=== PATIENT | female | born 1930 | race Caucasian/White ===

== ENCOUNTER → 2017-05-19 | Outpatient (CLI) | payer OTHER ==
[~2017-05-19] MED LIST: ALBU18002 INH; ASPI325T39 PO; LEVO75TA PO; METH-467 PO; MULT-506 PO; PRT/20 PO; SIMV20TA2 PO
[2017-05-19 13:19] LABS: BASO % 0.4 %; BASO ABS # 0.02 K/uL (0-0.2); COMPLETE YES; EOS % 1.9 %; HEMATOCRIT 41.1 % (37-47); IG% 0.2 %; LYMPH % 29.6 %; LYMPH ABS # 1.58 K/uL (1.2-3.4); MEAN CELL VOLUME 94.9 fL (80-100); MEAN CORPUSCULAR HEMOGLOBIN 31.2 pg (25-34); MEAN CORPUSCULAR HGB CONC 32.8 g/dl (32-36); MONO % 12.2 %; NEUT % 55.7 %; PLATELET COUNT 285 K/uL (130-400); RED BLOOD COUNT 4.33 M/uL (4.2-5.4); WHITE BLOOD COUNT 5.33 K/uL (4.8-10.8)
[2017-05-19 13:38] LABS: ALT/SGPT 17 U/L (12-78); AST/SGOT 10 U/L (15-37); BLOOD UREA NITROGEN 21 mg/dl (7-18); BUN/CREATININE RATIO 26.5 (10-20); CALCIUM 8.5 mg/dl (8.5-10.1); CARBON DIOXIDE 27 mmol/L (21-32); CHLORIDE 104 mmol/L (98-107); CHOLESTEROL 196 mg/dl (0-200); CREATININE 0.78 mg/dl (0.60-1.20); GLUCOSE 73 mg/dl (70-99); POTASSIUM 3.8 mmol/L (3.5-5.1); SODIUM 136 mmol/L (136-145); TRIGLYCERIDES 84 mg/dl (0-150); VERY LOW DENSITY LIPOPROT CALC 17 mg/dl
[2017-05-19 13:46] LABS: ALB/GLOB RATIO 1.1 (0.9-2); ALKALINE PHOSPHATASE 57 U/L (45-117); CHOLESTEROL/HDL RATIO 2.6; HDL CHOLESTEROL 76 mg/dl; LDL CHOLESTEROL CALCULATED 103 mg/dl
== END | disposition home or self-care (01) ==
LOC: C.LABMFLN 07:59
PROVIDERS: ATTEND Family Medicine
DX: J45.909 Unspecified asthma, uncomplicated (principal); E78.5 Hyperlipidemia, unspecified; E03.9 Hypothyroidism, unspecified; E55.9 Vitamin D deficiency, unspecified

== ENCOUNTER → 2017-07-21 | Outpatient (CLI) | payer OTHER ==
[~2017-07-21] MED LIST changes: +MethylPREDNISolone HOME PACK 16 MG TAB PO SCH
--- NOTE | 2017-07-21 13:49 | DIAGNOSTIC IMAGING REPORT ---
CT ANGIOGRAM OF THE BRAIN COMBO; CT ANGIOGRAM OF THE NECK CLINICAL HISTORY: Vertebral artery stenosis. COMPARISON STUDY: No priors. TECHNIQUE: Unenhanced axial CT scan of the brain is performed. Subsequently, following the IV administration of 120 of Optiray 320, CT angiogram of the head and neck was performed from the aortic arch to the vertex. Images are reviewed in the axial, sagittal, and coronal planes. 3-D MIPS images are created and assessed. IV contrast was administered without complication. All measurements were calculated based on NASCET criteria. A dose lowering technique was utilized adhering to the principles of ALARA. CT DOSE: 1110.73 mGy.cm FINDINGS: Brain parenchyma: There are age-related involutional changes noting mild subcortical and periventricular microangiopathic disease. There is no hemorrhage, mass effect, or evidence of acute territorial ischemia by CT criteria. There is no evidence of enhancing mass lesion on the angiogram phase images. The ventricles, sulci, and cisterns are prominent secondary to involutional change. Shannon-white matter differentiation is preserved. No extra-axial fluid collection is seen. Thoracic aorta: There is mild atherosclerotic calcification of the thoracic aorta. Visualized portions of the thoracic aorta are normal in caliber. The arch demonstrates standard 3-vessel anatomy. Right carotid arterial system: The right common carotid artery is widely patent, as are the right internal and external carotid arteries. There is tortuosity of the distal internal carotid artery. Left carotid arterial system: The left common carotid artery is widely patent, as are the left internal and external carotid arteries. Vertebral arteries: Widely patent and codominant. Subclavian arteries: Widely patent bilaterally. Intracranial vasculature: There is mild atherosclerotic calcification of the cavernous carotid arteries. There is a right posterior communicating artery. The internal carotid arteries are patent at the skull base, as are the anterior and middle cerebral arteries bilaterally. The vertebrobasilar system and posterior cerebral arteries are widely patent. The vertebral arteries are codominant. There is no aneurysm, high-grade stenosis, or focal vessel cut off seen throughout the intracranial circulation. Jugular veins: Widely patent bilaterally. Dural sinuses: Patent. Lung apices: Partially visualized upper lobe lung parenchyma appears clear. Soft tissues: The visualized pharyngeal soft tissues are normal in appearance noting angiographic phase technique. The oropharyngeal airway appears widely patent. The salivary glands are normal in appearance. The thyroid gland is atrophic. No cervical lymphadenopathy is seen. Skeletal structures: The skeletal structures are osteopenic. The calvarium appears maintained. The cervical spine is intact noting multilevel spondylosis. Sinuses and mastoids: The paranasal sinuses are clear. The mastoid air cells are well pneumatized. Orbits: The bony orbits appear intact. There has been banding of the ocular globes. Bilateral lens implants are noted. IMPRESSION: 1. There is no hemorrhage, mass effect, or evidence of acute territorial ischemia by CT criteria. 2. Unremarkable CT angiogram of the brain. 3. Unremarkable CT angiogram of the neck. Electronically signed by: Alfonso Dean M.D. 07/21/2017 1:48 PM Dictated Date/Time: 07/21/2017 1:36 PM
== END | disposition home or self-care (01) ==
LOC: C.CTS 12:16
PROVIDERS: ATTEND Family Medicine
DX: I65.09 Occlusion and stenosis of unspecified vertebral artery (principal)

== ENCOUNTER → 2017-07-31 | Outpatient (CLI) | payer OTHER ==
[~2017-07-31] MED LIST changes: -MethylPREDNISolone HOME PACK 16 MG TAB PO SCH
== END | disposition home or self-care (01) ==
LOC: C.LABMFLN 14:02
PROVIDERS: ATTEND Family Medicine
DX: N39.0 Urinary tract infection, site not specified (principal)

== ENCOUNTER → 2017-08-11 | Outpatient (CLI) | payer OTHER | END | disposition home or self-care (01) | LOC: C.LABMFLN 11:06 | PROVIDERS: ATTEND Family Medicine | DX: N39.0 Urinary tract infection, site not specified (principal) ==

== ENCOUNTER → 2017-08-15 | Outpatient (CLI) | payer OTHER | END | disposition home or self-care (01) | LOC: C.LABMFLN 15:44 | PROVIDERS: ATTEND Family Medicine | DX: N39.0 Urinary tract infection, site not specified (principal) ==

== ENCOUNTER → 2017-10-12 | Outpatient (CLI) | payer OTHER | END | disposition home or self-care (01) | LOC: C.LABSPEC 10:16 | PROVIDERS: ATTEND Urology | DX: N39.0 Urinary tract infection, site not specified (principal) ==

== ENCOUNTER 2017-12-04 08:20 | Inpatient (IN) | payer OTHER ==
--- NOTE | 2017-11-16 15:09 | HISTORY & PHYSICAL EXAMINATION ---
DATE OF ADMISSION: 12/04/2017 CHIEF COMPLAINT: Left knee pain. HISTORY OF PRESENT ILLNESS: Ms. Lira is an 87-year-old female with a 5-6 year history of left knee pain. The patient rates her pain as 07/10. She has pain with her daily activities. She has limited standing and walking tolerance. Pain is worse with weightbearing. The patient has had injection. She ambulates with a walker. She has failed conservative treatment and is scheduled for left knee replacement. PAST MEDICAL HISTORY: Mitral valve regurgitation, asthma controlled, thyroid disease. She denies heart disease, diabetes or DVT. PAST SURGICAL HISTORY: Tonsillectomy, hysterectomy, ORIF of wrist and ORIF of elbow. SOCIAL HISTORY: The patient denies alcohol or tobacco use. She lives in a [address] home. She is and retired. FAMILY HISTORY: Negative for DVT. MEDICATIONS: Synthroid 75 mcg daily, simvastatin 10 mg daily, aspirin 325 mg p.r.n., and Protonix 20 mg daily. ALLERGIES: CELEBREX, SULFA, CEPHALOSPORINS, LEVOFLOXACIN, CIPROFLOXACIN, AND IODINE. REVIEW OF SYSTEMS: See HPI. Ten other systems reviewed, all negative. PHYSICAL EXAMINATION: VITAL SIGNS: Height 5 feet 3 inches, weight 140 pounds, BMI 25. GENERAL: This is a well-developed, well-nourished female who is alert and oriented x3. Mood and affect are appropriate. HEENT: Normocephalic, atraumatic. Mucous membranes are moist and intact. NECK: Supple without lymphadenopathy. HEART: Regular rate and rhythm without murmurs, rubs or gallops. LUNGS: Clear to auscultation without wheezes or rhonchi. ABDOMEN: Soft and nontender. Bowel sounds are equal and active. EXTREMITIES: No ecchymosis, redness or warmth. She has a valgus deformity. Range of motion is from 5-110 degrees. She has no laxity. She is neurovascularly intact with +5/5 strength. X-RAY EXAMINATION: AP and lateral views show joint space narrowing and osteophyte formation. IMPRESSION: Degenerative joint disease, left knee. PLAN: The patient will be admitted for a left total knee arthroplasty. We will plan on aspirin for DVT prophylaxis. The patient is planning a short stay at [facility] upon discharge.
[2017-11-16 15:12] VITALS: Ht 160 cm; Wt 63.7 kg
--- NOTE | 2017-11-16 15:53 | PAT Medication Instructions ---
Service Date Nov 16, 2017. Current Home Medication List Albuterol Sulfate (Proair Respiclick), 2 PUFFS INH PRN Levothyroxine Sodium (Synthroid), 75 MCG PO QAM Methenamine Hippurate (Methenamine Hippurate), 1 TAB PO BID Multivitamin (Multivitamin), 1 TAB PO HS Pantoprazole (Protonix), 20 MG PO QAM Simvastatin (Zocor), 20 MG PO QPM Medication Instructions For Your Scheduled Surgery - Take the following medications the morning of surgery with a sip of water: Albuterol Sulfate (Proair Respiclick), 2 PUFFS INH PRN (if needed, and bring it with you to the hospital) Levothyroxine Sodium (Synthroid), 75 MCG PO QAM Methenamine Hippurate (Methenamine Hippurate), 1 TAB PO BID Pantoprazole (Protonix), 20 MG PO QAM - Take the following medications as scheduled the night before surgery: Albuterol Sulfate (Proair Respiclick), 2 PUFFS INH PRN (if needed) Methenamine Hippurate (Methenamine Hippurate), 1 TAB PO BID Multivitamin (Multivitamin), 1 TAB PO HS Simvastatin (Zocor), 20 MG PO QPM If you have any questions please call us at [phone] or [phone] or [phone]
[2017-11-16 16:32] LABS: BASO % 0.6 %; BASO ABS # 0.03 K/uL (0-0.2); EOS % 3.1 %; EOS ABS # 0.15 K/uL (0-0.5); HEMATOCRIT 40.8 % (37-47); HEMOGLOBIN 13.6 g/dL (12.0-16.0); LYMPH % 22.4 %; LYMPH ABS # 1.09 K/uL (1.2-3.4); MEAN CELL VOLUME 92.9 fL (80-100); MEAN CORPUSCULAR HGB CONC 33.3 g/dl (32-36); MEAN PLATELET VOLUME 10.6 fL (7.4-10.4); MONO % 8.8 %; MONO ABS # 0.43 K/uL (0.11-0.59); NEUT % 65.1 %; NEUT ABS # 3.17 K/uL (1.4-6.5); PLATELET COUNT 254 K/uL (130-400); RED CELL DISTRIBUTION WIDTH CV 13.3 % (11.5-14.5); RED CELL DISTRIBUTION WIDTH SD 45.2 fL (36.4-46.3); WHITE BLOOD COUNT 4.87 K/uL (4.8-10.8)
[2017-11-16 16:38] LABS: HEMOGLOBIN A1C 5.6 % (4.5-5.6)
[2017-11-16 16:40] LABS: ALBUMIN 3.7 gm/dl (3.4-5.0); CALCIUM 9.5 mg/dl (8.5-10.1); CREATININE 0.67 mg/dl (0.60-1.20); POTASSIUM 3.8 mmol/L (3.5-5.1)
--- NOTE | 2017-11-16 16:47 | DIAGNOSTIC IMAGING REPORT ---
CHEST 2 VIEWS ROUTINE CLINICAL HISTORY: pat preoperative evaluation COMPARISON STUDY: No previous studies for comparison. FINDINGS: Mild cardiomegaly. External hernia. Diaphragms smooth. Lungs are clear. IMPRESSION: Mild cardiomegaly. Hilar hernia. No acute process. The above report was generated using voice recognition software. It may contain grammatical, syntax or spelling errors. Electronically signed by: Rashel Pitt M.D. 11/16/2017 4:46 PM Dictated Date/Time: 11/16/2017 4:45 PM
[2017-11-16 16:51] LABS: PTT PATIENT 34.5 SECONDS (21.0-31.0)
[2017-12-04] VITALS (8 sets, daily range): BP systolic 102–132; BP diastolic 59–75; PULSE 65–76; TEMP 36.3–36.6; O2SAT 95–99
[~2017-12-04] VITALS: Ht 160 cm; Wt 63.7 kg
[~2017-12-04 08:20] MED LIST changes: +ACETAMINOPHEN 500 MG TAB PO SCH; -ASPI325T39 PO; +BUPIVACAINE 0.5 % 5 MG/1 ML PF 10ML VIAL ONE; +CEFAZOLIN 1000MG IV PUSH 7.5 ML IV SCH; +CLINDAMYCIN 600 MG/54 ML D5W IV SCH; +DEXAMETHASONE 4 MG TAB PO SCH; +FAMOTIDINE 20 MG TAB PO SCH; +FENTANYL CITRATE INJ 50 MCG/1 ML 2 ML VIAL ONE; +GABAPENTIN 300 MG CAP PO SCH; +LACTATED RINGER'S 1000ML 1,000 ML IV SCH; +LACTATED RINGER'S 1000ML 500 ML IV SCH; +LIDOCAINE HCL 2% 2 ML VIAL (20MG/ML) ONE; +METH-1305 PO; -METH-467 PO; +METOCLOPRAMIDE HCL 10 MG TAB PO SCH; +MIDAZOLAM HCL 1 MG/ML 2ML VIAL ONE; +PROPOFOL IV EMULSION 10 MG/ML 20 ML VIAL IV ONE; +ROPIVACAINE 5MG/ML 30 ML 150 MG, BUPIVACAINE 0.5% MPF INJ 30 ML, EpINEphrine HCL INJ 0.... INFIL SCH
[2017-12-04] MEDS ORDERED: CLARITIN D (08:43)
[2017-12-04] MEDS ORDERED: ATROPINE SULFATE 0.1 MG/ML 5ML SYR IV PRN (08:45)
[2017-12-04] MEDS ORDERED: FENTANYL CITRATE INJ 50 MCG/1 ML 2 ML VIAL IV PRN (08:45)
[2017-12-04] MEDS ORDERED: EpHEDrine SULFATE INJ 50 MG/ML AMP IV PRN (08:45)
[2017-12-04] MEDS ORDERED: ONDANSETRON INJ 2 MG/ML 2 ML VIAL IV PRN ×2 (08:45→11:30)
[2017-12-04] MEDS ORDERED: BACITRACIN 50000 UNIT VIAL ONE (08:56)
[2017-12-04] MEDS ORDERED: ORTHO JOINT ANESTHETIC ONE (08:56)
[2017-12-04] MEDS ORDERED: POVIDONE-IODINE OP SOLN 30 ML BTL ONE (09:12)
--- NOTE | 2017-12-04 09:12 | History & Physical Bridge Note ---
H&P Re-Evaluation Bridge Note: I have examined the patient, reviewed the History & Physical and in the interval since the performance of the History & Physical I have noted the following changes of clinical significance: No changes noted
[2017-12-04] MEDS ORDERED: CLINDAMYCIN 600 MG/54 ML D5W IV ONE (09:23)
[2017-12-04] MEDS: TRANEXAMIC ACID INJ 1,000 MG x 2 Bags IV SCH ×4 (09:29→13:31)
--- NOTE | 2017-12-04 10:41 | [facility] Post Operative Brief Note ---
Immediate Operative Summary Operative Date Dec 04, 2017. Pre-Operative Diagnosis Degenerative joint disease left knee Post-Operative Diagnosis Same as preoperative diagnosis Procedure(s) Performed Left total knee, Cemented, Amber Surgeon Dr. Jaramillo Registered Nurse Supervisor Surgeon(s) Mick Guzman PA-C Estimated Blood Loss 10ml Findings Consistent with Post-Op Diagnosis Specimens A. Left knee bone and tissue Anesthesia Type MAC Spinal Regional Complication(s) none Disposition Accompanied Pt To Recover: no Disposition: Recovery Room / PACU
--- NOTE | 2017-12-04 11:22 | OPERATIVE REPORT ---
DATE OF OPERATION: 12/04/2017 PREOPERATIVE DIAGNOSIS: Osteoarthritis, left knee. POSTOPERATIVE DIAGNOSIS: Osteoarthritis, left knee. PROCEDURE: Left total knee arthroplasty. SURGEON: Dr. Jaramillo. DOUBLING MACHINE OPERATOR: ROSELINE Wright ANESTHESIA: Spinal. COMPLICATIONS: None. IMPLANTS USED: Femoral size 3, tibial size 3, tibial poly 13, and patella size 36. OPERATION AND FINDINGS: Following induction of spinal anesthesia, the patient's left leg was prepped and draped in the usual sterile manner. Limb was exsanguinated with an Esmarch bandage and tourniquet was inflated to 350 mmHg. A longitudinal incision was made anteriorly. Subcutaneous tissue was sharply dissected. Electrocautery was used for hemostasis. Prepatellar bursa was incised and median parapatellar incision was performed. Patella was everted and the knee was flexed. Fat pad was removed to aid in visualization and the anterior and posterior cruciate ligaments were removed. The medial face of the tibia was cleared of soft tissue first with a Bovie and a Boyd elevator. This tissue was retracted posteriorly using a blunt Hohmann. A Aguilar retractor was used to expose the synovium above on the anterior aspect of the femur and this was removed down to bone. The PSI guide was placed on the distal femur and two pins were placed anteriorly and kept in position and two additional pins were placed distally and removed. The distal femoral cutting block was placed in position and the distal femoral cut was used in the +0 setting. Next, the cutting block was removed and the femoral 3 block was placed in the distal end of the femur. Care was taken to ensure appropriate external rotation and feeler gauge was used to ensure no notching would occur. The femoral block was centered on the distal femur and in the medial and lateral direction and was fixed using two bone screws. The gold pins were then removed. The oscillating saw was used to create the bone cuts and the distal femoral cutting block was removed and the reciprocating saw was used to further trim the femoral cuts as well as a deep in the area for the trochlear groove. Next, posterior condyle remnants were removed. Following this, a meniscal clamp and knife were utilized to remove the anterior portion of both medial and lateral meniscus. The proximal tibia PSI guide was placed into position and the proximal tibial cutting guide was screwed into position. The extra medullary alignment guide was utilized to ensure appropriate alignment. The proximal tibia was cut and the proximal tibial cutting block was removed and this bone fragment was removed. The appropriate guide was used to perform the notch cut on the distal femur and a lamina tray delivery aide and a cochlear knife were utilized to finish both medial and lateral meniscectomies to remove any remnants of the posterior or anterior cruciate ligaments. Following this, the distal femoral component was impacted into position and blunt Gage was used to sublux the tibia anteriorly. The proximal tibia was sized and a 3 tibial tray was chosen as the size to be used. This was put into position and appropriate external rotation and a double check with extramedullary alignment guide was performed. The canal for the tibial stem was prepared first with a 17 mm drill and then the punch and a mallet and the trial tibial poly was placed. A 13 was chosen the size to be used. It was brought to extension and the patella was prepared with the patellar reamer. A 36 component was chosen the size to be used. The trial component was placed and knee was taken through a full range of motion and there was found to be no lateral subluxation of the tibia. No lateral release was required. The trials were all removed. The final components were obtained and assembled. Cement was mixed. The knee was thoroughly irrigated and the ortho mix was injected about the knee joint. The final components were cemented into position. After thoroughly suctioning and drying the bone ends, all excess cement was removed. The knee was held in extension while the cement hardened. The wound was irrigated and closed over a Hemovac drain. #1 Vicryl was used to close the extensor mechanism. Subcutaneous tissues closed using 0 Dexon. Skin was closed with cami. Sterile dressing of Adaptic, 4 x 4's, sterile Webril, and Fer was applied. The patient tolerated the procedure well. Due to the complex nature of the procedure, the entire surgery was performed with the operational assistance of ROSELINE Wright. The customer service assistant, under direct supervision, was involved in the actual performance of all aspects of the surgical procedure including hemostasis, tissue retraction and incision, instrument management, patient positioning, and wound closure. DISPOSITION: Recovery room, stable. I attest to the content of the Intraoperative Record and any orders documented therein. Any exception s are noted below.
[2017-12-04] MEDS ORDERED: MoRPHine SULFATE 2 MG/ML CARP IV PRN (11:30)
[2017-12-04] MEDS ORDERED: TRAMADOL HCL 50 MG TAB PO PRN (11:30)
[2017-12-04] MEDS ORDERED: MAGNESIUM HYDROXIDE SUSP 30 ML UDC PO PRN (11:30)
[2017-12-04] MEDS ORDERED: BISACODYL 10 MG SUPP PR PRN (11:30)
[2017-12-04] MEDS ORDERED: ALUMINUM/MAGNESIUM/SIMETH (MAALOX MAX) 30 ML UDC PO PRN (11:30)
--- NOTE | 2017-12-04 11:47 | DIAGNOSTIC IMAGING REPORT ---
L KNEE 1 OR 2 VIEWS ROUTINE HISTORY: 87 years-old Female AP/LATERAL IN PACU LEFT KNEE status post left knee total joint arthroplasty. Degenerative joint disease. COMPARISON: None available TECHNIQUE: 2 views of the left knee FINDINGS: Postoperative changes from recent left knee total joint arthroplasty and patellar resurfacing. Anterior midline skin cami are noted in addition to expected postsurgical soft tissue swelling and deep tissue air. Surgical drain is in place. The bones appear mildly demineralized. Alignment is satisfactory. No retained foreign body identified. IMPRESSION: Satisfactory alignment of the left knee status post placement of a left knee total joint arthroplasty with patellar resurfacing. The above report was generated using voice recognition software. It may contain grammatical, syntax or spelling errors. Electronically signed by: Brent Cai M.D. 12/04/2017 11:46 AM Dictated Date/Time: 12/04/2017 11:45 AM
[2017-12-04] MEDS ORDERED: ALBUTEROL HFA 8 GM INHALER INH PRN (12:15)
--- NOTE | 2017-12-04 12:21 | Anesthesiology Progress Note ---
Anesthesia Post Op Note Date & Time Dec 04, 2017 at 12:21 Vital Signs Pain Intensity: 0 Vital Signs Past 12 Hours Date Time Temp Pulse Resp B/P (MAP) Pulse Ox O2 Delivery O2 Flow Rate FiO2 12/04/17 11:58 36.4 122/67 12/04/17 11:56 63 14 100 12/04/17 11:56 63 14 12/04/17 11:53 128/61 12/04/17 11:51 63 12 99 12/04/17 11:51 63 12 12/04/17 11:48 126/57 12/04/17 11:46 62 18 12/04/17 11:46 62 18 99 12/04/17 11:45 Nasal Cannula 3 12/04/17 11:43 125/58 12/04/17 11:41 63 24 99 12/04/17 11:41 63 24 12/04/17 11:38 119/55 12/04/17 11:36 65 12 12/04/17 11:36 64 12 99 12/04/17 11:33 119/51 12/04/17 11:31 64 14 99 12/04/17 11:31 64 14 12/04/17 11:28 121/54 12/04/17 11:26 69 16 12/04/17 11:26 73 16 100 12/04/17 11:23 119/52 12/04/17 11:21 81 15 100 12/04/17 11:21 69 15 12/04/17 11:19 118/52 12/04/17 11:16 36.5 76 16 118/52 100 Oxymask 7 12/04/17 08:43 36.4 76 18 130/66 97 Room Air Notes Mental Status: alert / awake / arousable, participated in evaluation Pt Amnestic to Procedure: Yes Nausea / Vomiting: adequately controlled Pain: adequately controlled Airway Patency, RR, SpO2: stable & adequate BP & HR: stable & adequate Hydration State: stable & adequate Neuraxial Anesthesia: was administered, sensory block is resolving Anesthetic Complications: no major complications apparent
[2017-12-04] MEDS: D5W AND 1/2NSS + 20MEQ KCL 1,000 ML IV SCH (13:30)
[2017-12-04] MEDS: ACETAMINOPHEN 500 MG TAB PO SCH (16:51)
[2017-12-04] MEDS: CLINDAMYCIN IV 600 MG in DEXTROSE 5% 50ML 50 ML IV SCH (17:49)
[2017-12-04] MEDS: FERROUS GLUCONATE 324 MG TAB PO SCH (17:49)
[2017-12-04] MEDS: SENNA 8.6 MG TAB PO SCH (21:00)
[2017-12-04] MEDS: DOCUSATE SODIUM 100 MG CAP PO SCH (21:01)
[2017-12-04] MEDS: METHENAMINE HIPPURATE 1 GM TAB PO SCH (21:01)
[2017-12-04] MEDS: ASPIRIN 81 MG ECTAB PO SCH (21:02)
[2017-12-04] MEDS: SIMVASTATIN 20 MG TAB PO SCH (22:25)
[2017-12-05] MEDS: ACETAMINOPHEN 500 MG TAB PO SCH ×3 (01:30→16:44)
[2017-12-05] MEDS: D5W AND 1/2NSS + 20MEQ KCL 1,000 ML IV SCH (01:31)
[2017-12-05] MEDS: CLINDAMYCIN IV 600 MG in DEXTROSE 5% 50ML 50 ML IV SCH (01:31)
[2017-12-05 03:15] VITALS: BP 152/76; PULSE 79; TEMP 36.6; O2SAT 97
[2017-12-05] MEDS: LEVOTHYROXINE 75 MCG TAB PO SCH (05:27)
[2017-12-05 06:40] LABS: HEMATOCRIT 35.9 % (37-47); HEMOGLOBIN 11.7 g/dL (12.0-16.0); MEAN CELL VOLUME 91.8 fL (80-100); MEAN CORPUSCULAR HEMOGLOBIN 29.9 pg (25-34); MEAN CORPUSCULAR HGB CONC 32.6 g/dl (32-36); MEAN PLATELET VOLUME 10.6 fL (7.4-10.4); PLATELET COUNT 211 K/uL (130-400); RED CELL DISTRIBUTION WIDTH CV 13.1 % (11.5-14.5); RED CELL DISTRIBUTION WIDTH SD 44.1 fL (36.4-46.3); WHITE BLOOD COUNT 10.35 K/uL (4.8-10.8)
--- NOTE | 2017-12-05 06:51 | Orthopedic Progress Note ---
Orthopedic Progress Note Date of Service Dec 05, 2017. Subjective Post OP Day: 1 Reports: feeling well Objective N/V intact, dressing C/D/I (Hemovac in place), toes mobile Date Time Temp Pulse Resp B/P (MAP) Pulse Ox O2 Delivery O2 Flow Rate FiO2 12/05/17 03:15 36.6 79 16 152/76 (101) 97 Room Air 12/04/17 23:30 Room Air 12/04/17 22:50 36.5 65 18 132/68 (89) 97 Room Air 12/04/17 19:54 36.6 75 16 126/75 (92) 95 Room Air 12/04/17 15:25 36.6 68 16 120/75 (90) 99 3.0 12/04/17 14:31 36.3 68 17 102/59 (73) 99 Nasal Cannula 3.0 12/04/17 13:27 36.6 68 15 118/68 (85) 97 Nasal Cannula 3.0 12/04/17 13:05 36.5 65 16 119/68 (85) 99 Nasal Cannula 2.0 12/04/17 12:35 Nasal Cannula 12/04/17 12:35 Nasal Cannula 12/04/17 12:30 36.4 67 18 120/67 (84) 95 Nasal Cannula 3.0 12/04/17 12:19 63 20 12/04/17 12:19 63 20 100 12/04/17 12:18 132/62 12/04/17 12:14 63 17 12/04/17 12:14 63 17 99 12/04/17 12:13 124/61 12/04/17 12:09 62 20 99 12/04/17 12:09 63 20 12/04/17 12:08 125/64 12/04/17 12:04 61 17 100 12/04/17 12:04 61 17 12/04/17 12:03 133/61 12/04/17 11:59 72 19 99 12/04/17 11:59 71 19 12/04/17 11:58 36.4 122/67 12/04/17 11:56 63 14 100 12/04/17 11:56 63 14 12/04/17 11:53 128/61 12/04/17 11:51 63 12 99 12/04/17 11:51 63 12 12/04/17 11:48 126/57 12/04/17 11:46 62 18 12/04/17 11:46 62 18 99 12/04/17 11:45 Nasal Cannula 3 12/04/17 11:43 125/58 12/04/17 11:41 63 24 99 12/04/17 11:41 63 24 12/04/17 11:38 119/55 12/04/17 11:36 65 12 12/04/17 11:36 64 12 99 12/04/17 11:33 119/51 12/04/17 11:31 64 14 99 12/04/17 11:31 64 14 12/04/17 11:28 121/54 12/04/17 11:26 69 16 12/04/17 11:26 73 16 100 12/04/17 11:23 119/52 12/04/17 11:21 81 15 100 12/04/17 11:21 69 15 12/04/17 11:19 118/52 12/04/17 11:16 36.5 76 16 118/52 100 Oxymask 7 12/04/17 08:43 36.4 76 18 130/66 97 Room Air Laboratory Results 24 Hours: Test 12/05/17 06:11 Hematocrit 35.9 % Hemoglobin 11.7 g/dL Assessment & Plan Assessment: 87 yo female stable POD #1 s/p left TKA Plan: 1. Med management 2. DVT prophylaxis- ASA, SCDs 3. PT/OT 4. D/C planning- pt interested in [place]
[2017-12-05] MEDS: PANTOprazole SOD 40 MG TAB PO SCH (07:00)
[2017-12-05 07:08] VITALS: BP 132/71; PULSE 67; TEMP 36.5; O2SAT 95
[2017-12-05 07:14] LABS: CALCIUM 7.9 mg/dl (8.5-10.1); CREATININE 0.98 mg/dl (0.60-1.20); POTASSIUM 4.4 mmol/L (3.5-5.1)
--- NOTE | 2017-12-05 07:57 | Anesthesiology Progress Note ---
Anesthesia Post Op Note Date & Time Dec 05, 2017 at 07:57 Vital Signs Pain Intensity: 0.0 Vital Signs Past 12 Hours Date Time Temp Pulse Resp B/P (MAP) Pulse Ox O2 Delivery O2 Flow Rate FiO2 12/05/17 07:17 Room Air 12/05/17 07:08 36.5 67 16 132/71 (91) 95 Room Air 12/05/17 03:15 36.6 79 16 152/76 (101) 97 Room Air 12/04/17 23:30 Room Air 12/04/17 22:50 36.5 65 18 132/68 (89) 97 Room Air Notes Mental Status: alert / awake / arousable, participated in evaluation Pt Amnestic to Procedure: Yes Nausea / Vomiting: adequately controlled Pain: adequately controlled Airway Patency, RR, SpO2: stable & adequate BP & HR: stable & adequate Hydration State: stable & adequate Neuraxial Anesthesia: was administered, sensory block resolved Anesthetic Complications: no major complications apparent
[2017-12-05] MEDS: MULTIVITAMIN TAB PO SCH (08:48)
[2017-12-05] MEDS: OXYCODONE HCL IR 5 MG TAB (IMMEDIATE RELEASE) PO PRN ×2 (08:48→23:06)
[2017-12-05] MEDS: ASPIRIN 81 MG ECTAB PO SCH ×2 (08:48→20:41)
[2017-12-05] MEDS: FERROUS GLUCONATE 324 MG TAB PO SCH ×3 (08:49→17:47)
[2017-12-05] MEDS: DOCUSATE SODIUM 100 MG CAP PO SCH ×2 (08:49→20:41)
[2017-12-05] MEDS: METHENAMINE HIPPURATE 1 GM TAB PO SCH ×2 (08:52→20:41)
[2017-12-05 10:27] VITALS: BP 126/67; PULSE 72; O2SAT 99
[2017-12-05 10:38] VITALS: BP 125/74; PULSE 79; TEMP 36.5; O2SAT 100
[2017-12-05 15:20] VITALS: BP 121/68; PULSE 68; TEMP 36.6; O2SAT 95
[2017-12-05] MEDS: SENNA 8.6 MG TAB PO SCH (20:41)
[2017-12-05] MEDS: SIMVASTATIN 20 MG TAB PO SCH (20:41)
[2017-12-05 22:57] VITALS: BP 133/70; PULSE 68; TEMP 36.5; O2SAT 95
[2017-12-06] MEDS: ACETAMINOPHEN 500 MG TAB PO SCH ×4 (01:00→17:01)
[2017-12-06] MEDS: LEVOTHYROXINE 75 MCG TAB PO SCH (05:36)
[2017-12-06 06:04] VITALS: BP 135/69; PULSE 77; TEMP 36.7; O2SAT 96
--- NOTE | 2017-12-06 07:18 | Orthopedic Progress Note ---
Orthopedic Progress Note Date of Service Dec 06, 2017. Subjective Post OP Day: 2 Reports: feeling well Objective calves soft nontender, N/V intact, incision C/D/I, toes mobile Date Time Temp Pulse Resp B/P (MAP) Pulse Ox O2 Delivery O2 Flow Rate FiO2 12/06/17 06:04 36.7 77 18 135/69 (91) 96 Room Air 12/05/17 23:05 Room Air 12/05/17 22:57 36.5 68 18 133/70 (91) 95 Room Air 12/05/17 15:40 Room Air 12/05/17 15:20 36.6 68 18 121/68 (85) 95 Room Air 12/05/17 10:38 36.5 79 18 125/74 (91) 100 Room Air 12/05/17 10:27 72 99 Assessment & Plan Assessment: 87 yo female stable POD #2 s/p left TKA Plan: 1. Med management 2. DVT prophylaxis- ASA, SCDs 3. PT/OT 4. D/C planning- d/c to [place] tomorrow
[2017-12-06] MEDS: MULTIVITAMIN TAB PO SCH (07:23)
[2017-12-06] MEDS: PANTOprazole SOD 40 MG TAB PO SCH (07:23)
[2017-12-06] MEDS: DOCUSATE SODIUM 100 MG CAP PO SCH ×2 (07:23→21:05)
[2017-12-06] MEDS: OXYCODONE HCL IR 5 MG TAB (IMMEDIATE RELEASE) PO PRN ×2 (07:23→15:49)
[2017-12-06] MEDS: METHENAMINE HIPPURATE 1 GM TAB PO SCH ×2 (07:24→21:05)
[2017-12-06] MEDS: ASPIRIN 81 MG ECTAB PO SCH ×2 (07:24→21:05)
[2017-12-06] MEDS: FERROUS GLUCONATE 324 MG TAB PO SCH ×3 (07:24→17:01)
--- NOTE | 2017-12-06 07:29 | Discharge Instructions ---
Discharge Instructions Date of Service Dec 06, 2017. Admission Reason for Admission: Left Knee Osteoarthritis Discharge Discharge Diagnosis / Problem: Left knee arthritis Discharge Goals Goal(s): Decrease discomfort, Improve function Activity Recommendations Activity Limitations: as noted below Weightbearing Status: Left weightbearing (as tolerated) . Instructions / Follow-Up Instructions / Follow-Up ACTIVITY RECOMMENDATIONS: SELF CARE INSTRUCTIONS AFTER TOTAL KNEE REPLACEMENT A. You may need to continue a physical therapy program after discharge from the hospital. There are several options available to you. Your doctor will assist you in selecting the best one for you. 1. An out-patient facility 2 to 3 times a week for therapy or home therapy. 2. Continue working on all exercises taught to you in the hospital. Your goals should be to increase bending of your knee to 90 degrees and beyond and to fully straighten your knee. B. You may progress at your own pace from walking with a walker or crutches to a cane; then to no assistive devices. C. Make walking a part of your daily routine. Be up as much as comfortable with rest periods throughout the day. Rest with leg elevation is very important. Use the ice wrap frequently for the first 3-4 weeks. D. There are no restrictions on activities. You may ride in a car, shop, participate in microsoft application developer and all social activities. E. Wear the long elastic stockings (CARLOS hose) 20 hours a day for 2 weeks after surgery. They can be removed several times a day for laundering and for a bath. F. You may shower, no tub baths until cleared by your doctor. SPECIAL CARE INSTRUCTIONS: VERY IMPORTANT TO READ AND REVIEW A. There are a few signs you need to watch for after you are home. Call [facility] if you notice any of the followin. Increased severe knee pain. Some pain is expected especially when you exercise. 2. Increased swelling in your leg or knee; pain or swelling of the calf muscle in either lower leg. 3. Any fluid drainage from the incision. 4. Shortness of breath or chest pain. B. Please call [facility] at if you have any concerns or questions about your operation or recovery. The doctor or his nurse will return your call promptly. C. You must take antibiotics before dental work, bladder, bowel or other surgery. Your doctor will provide you with a permanent care to carry describing this precaution. IMPORTANT: * REMEMBER TO TAKE ASPIRIN, 81 MG, TWICE DAILY FOR 4 WEEKS UNLESS OTHERWISE DIRECTED. THIS IS YOUR BLOOD THINNER. * HIGH RISK PATIENTS MAY BE PRESCRIBED A STRONGER BLOOD THINNER. THIS WILL BE PROVIDED AT DISCHARGE. * CALL IF INCREASED PAIN, REDNESS, DRAINAGE OR FEVER GREATER THAT 101. * WEAR CARLOS HOSE 20 HOURS PER DAY FOR 2 WEEKS. * Maintain Zipline closure until follow-up with MD FOLLOW UP VISIT: If appointment is not already scheduled: Please call [facility] to make a follow-up appointment for 2 weeks after your surgery at . Current Hospital Diet Patient's current hospital diet: Regular Diet Discharge Diet Recommended Diet: Regular Diet Procedures Procedures Performed: Left total knee, Cemented, [place] Pending Studies Studies pending at discharge: no Laboratory Results Hemoglobin A1c Test 11/16/17 16:07 Range/Units Estimated Average Glucose 114 mg/dl Hemoglobin A1c 5.6 4.5-5.6 % Medical Emergencies . Who to Call and When: Medical Emergencies: If at any time you feel your situation is an emergency, please call 911 immediately. . Non-Emergent Contact Non-Emergency issues call your: Surgeon Call Non-Emergent contact if: temperature is above 101.5, your pain is not controlled, wound has increased drainage, wound has increased redness . "Provider Documentation" section prepared by Krishna Mclaughlin PA-C. . [facility] Drug Monitoring Program Search Results: patient reviewed within database, no issues identified
[2017-12-06 08:25] VITALS: O2SAT 96
[2017-12-06 11:58] VITALS: BP 126/74; PULSE 66; TEMP 36.6; O2SAT 100
[2017-12-06 12:50] VITALS: PULSE 77
[2017-12-06 15:18] VITALS: BP 146/80; PULSE 80; TEMP 36.8; O2SAT 98
[2017-12-06] MEDS: SIMVASTATIN 20 MG TAB PO SCH (21:05)
[2017-12-06] MEDS: SENNA 8.6 MG TAB PO SCH (21:06)
[2017-12-06 22:53] VITALS: BP 133/74; PULSE 82; TEMP 36.9; O2SAT 96
[2017-12-07] MEDS: ACETAMINOPHEN 500 MG TAB PO SCH ×2 (00:26→08:38)
[2017-12-07] MEDS: LEVOTHYROXINE 75 MCG TAB PO SCH (06:07)
[2017-12-07 07:28] VITALS: BP 145/75; PULSE 66; TEMP 36.9; O2SAT 90
--- NOTE | 2017-12-07 07:29 | Orthopedic Progress Note ---
Orthopedic Progress Note Date of Service Dec 07, 2017. Subjective Post OP Day: 3 Reports: feeling well Objective calves soft nontender, N/V intact, incision C/D/I, toes mobile Date Time Temp Pulse Resp B/P (MAP) Pulse Ox O2 Delivery O2 Flow Rate FiO2 12/06/17 22:53 36.9 82 17 133/74 (93) 96 Room Air 12/06/17 20:30 Room Air 12/06/17 15:18 36.8 80 16 146/80 (102) 98 Room Air 12/06/17 12:50 77 12/06/17 11:58 36.6 66 12 126/74 (91) 100 Room Air 12/06/17 08:25 96 Room Air 12/06/17 07:30 Room Air Assessment & Plan Assessment: 87 yo female stable POD #3 s/p left TKA Plan: 1. Med management 2. DVT prophylaxis- ASA, SCDs 3. PT/OT 4. D/C planning- d/c to [facility]
[2017-12-07] MEDS ORDERED: ACET-24 PO (07:32)
[2017-12-07] MEDS ORDERED: RXC5 PO (07:32)
[2017-12-07] MEDS ORDERED: ASPEC81 PO (07:32)
[2017-12-07] MEDS ORDERED: ULT50X PO (07:32)
[2017-12-07 07:47] VITALS: BP 145/75; PULSE 66; TEMP 36.9; O2SAT 90
[2017-12-07] MEDS: ASPIRIN 81 MG ECTAB PO SCH (08:37)
[2017-12-07] MEDS: METHENAMINE HIPPURATE 1 GM TAB PO SCH (08:37)
[2017-12-07] MEDS: MULTIVITAMIN TAB PO SCH (08:37)
[2017-12-07] MEDS: FERROUS GLUCONATE 324 MG TAB PO SCH (08:37)
[2017-12-07] MEDS: DOCUSATE SODIUM 100 MG CAP PO SCH (08:38)
[2017-12-07] MEDS: PANTOprazole SOD 40 MG TAB PO SCH (08:38)
== END 2017-12-07 10:45 | DRG 470 ==
LOC: C.ACU 08:20 → C.3E 08:30 → ENRESERV 11:44
PROC: 0SRD0J9 Replacement of Left Knee Joint with Synthetic Substitute, Cemented, Open Approach (ICD-10-PCS; principal; 2017-12-04 10:45)
DX: M17.12 Unilateral primary osteoarthritis, left knee (principal); J45.909 Unspecified asthma, uncomplicated; E07.9 Disorder of thyroid, unspecified; Z79.899 Other long term (current) drug therapy; Z79.82 Long term (current) use of aspirin; Z88.6 Allergy status to analgesic agent; Z88.2 Allergy status to sulfonamides; Z88.1 Allergy status to other antibiotic agents; Z88.8 Allergy status to other drugs, medicaments and biological substances